=== PATIENT | female | born 1965 | race Two or more races ===

== ENCOUNTER 2025-01-09 12:32 | Emergency (ER) | payer OTHER ==
[~2025-01-09] VITALS: Ht 177.8 cm; Wt 125.2 kg
[2025-01-09] MEDS ORDERED: ROSUVASTATIN CA10 MG PO (12:58)
[2025-01-09] MEDS ORDERED: LOSARTAN POTASS50 MG PO (12:58)
[2025-01-09] MEDS ORDERED: JENTADUETO 2.51 EAC2 PO (12:58)
[2025-01-09] MEDS ORDERED: SYNTHROID112 MCG PO (12:58)
[2025-01-09] MEDS ORDERED: GUAIFENESIN/DEXTROMETHORPHAN 100MG/10ML BLIST.PACK PO ONE (15:30)
[2025-01-09 16:01] LABS: BASO % 0.4 % (0.1-1.2); EOS # 0.10 (0.04-0.54); EOS % 1.8 % (0.7-7.0); LYMPH # 1.85 (1.18-3.74); LYMPH % 32.8 % (19.3-53.1); MEAN PLATELET VOLUME 10.70 fl (9.4-12.4); MONO # 0.54 (0.24-0.82); MONO % 9.6 % (4.7-12.5); NEUT # 3.12 (1.56-6.13); NEUT % 55.2 % (34.0-71.1); RED CELL DISTRIBUTION WIDTH 13.3 % (11.6-14.4)
[2025-01-09 16:33] LABS: COVID-19 AG POSITIVE (NEGATIVE)
== END 2025-01-09 17:27 | disposition home or self-care (01) ==
LOC: ER 12:32
PROVIDERS: General Practice
DX: U07.1 COVID-19 (principal); I10 Essential (primary) hypertension; E03.8 Other specified hypothyroidism